=== PATIENT | female | born 2000 | race American Indian/Alaskan Native ===

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

== ENCOUNTER 2021-12-11 16:47 | Emergency (ER) | payer BC, MEDICAID ==
[2021-12-11] MEDS ORDERED: KETOROLAC 10 MG TAB PO ONE (19:10)
[2021-12-11] MEDS ORDERED: ACETAMINOPHEN W/CODEINE 300-30 MG TAB PO ONE (19:10)
--- NOTE | 2021-12-11 19:15 | Emergency Department Report ---
ED Abdominal Pain HPI - General Chief Complaint: Abdominal Pain Stated Complaint: ABDOMINAL PAIN/VOMITING Time Seen by Provider: 12/11/21 19:10 Source: patient Mode of arrival: Ambulatory Limitations: No Limitations - History of Present Illness Initial Comments: 21-year-old black female with a past medical history of PCOS presents to the emergency room for evaluation of abdominal cramping and abnormal vaginal bleeding. She states that she started her period on December 02 and has been bleeding since then. She states that 2 to 3 days ago the bleeding became heavier and she was passing clots also. She states that 2 months ago she was started on control pills, and she was seen by her GENERAL I FARMWORKER Dr. Hitchcock of [facility] who stated that she should continue her control pills and give it another month to see if the bleeding improves. She was also seen at urgent care 3 days ago for same problem and was advised to follow-up in the e mergency room. She states that prior to December 02, she had not had a period for several months. She states that when she has the cramping that she has pain/pressure in her lower abdomen vaginal area and rectal area. She denies fever, dysuria, changes in appetite, dizziness, and weakness. MD Complaint: abdominal pain -: Gradual, days(s) (13) Location: suprapubic Severity: moderate Severity scale (0 -10): 7 Quality: cramping Consistency: intermittent Associated Symptoms: denies: nausea, vomiting, constipation, dysuria, melena, anorexia - Related Data Previous Rx's Medication Instructions Recorded Last Taken Type Amoxicillin 500 mg PO BID #14 capsule 06/29/18 Unknown Rx Ibuprofen [Motrin 800 MG tab] 800 mg PO Q8HR PRN #20 tablet 06/29/18 Unknown Rx Naproxen [Naprosyn] 500 mg PO BID #14 tab 12/11/21 Unknown Rx Allergies Allergy/AdvReac Type Severity Reaction Status Date / Time No Known Allergies Allergy Unverified 06/29/18 00:22 ED Review of Systems ROS: Stated complaint: ABDOMINAL PAIN/VOMITING Other details as noted in HPI Comment: All other systems reviewed and negative Constitutional: denies: chills, fever, malaise, weakness Respiratory: denies: no symptoms reported, cough, shortness of breath, SOB with exertion, SOB at rest Cardiovascular: denies: chest pain, palpitations, syncope Endocrine: no symptoms reported Gastrointestinal: abdominal pain. denies: nausea, vomiting, hematemesis, melena, hematochezia Genitourinary: abnormal menses. denies: urgency, dysuria, frequency, hematuria, discharge, dyspareunia Musculoskeletal: denies: back pain Skin: denies: rash, lesions Neurological: denies: weakness, vertigo Psychiatric: denies: anxiety ED Past Medical Hx - Past Medical History Previous Medical History?: Yes Additional medical history: Morbid Obesity - Surgical History Past Surgical History?: Yes - Social History Smoking Status: Never Smoker Substance Use Type: None (denies illicit drug use) - Medications Home Medications: Home Medications Medication Instructions Recorded Confirmed Last Taken Type Amoxicillin 500 mg PO BID #14 capsule 06/29/18 Unknown Rx Ibuprofen [Motrin 800 MG tab] 800 mg PO Q8HR PRN #20 tablet 06/29/18 Unknown Rx Naproxen [Naprosyn] 500 mg PO BID #14 tab 12/11/21 Unknown Rx ED Physical Exam - General General appearance: alert, in no apparent distress - Head Head exam: Present: atraumatic, normocephalic - Eye Eye exam: Present: normal appearance. Absent: conjunctival injection - Neck Neck exam: Present: normal inspection, full ROM - Respiratory Respiratory exam: Present: normal lung sounds bilaterally. Absent: respiratory distress, wheezes, chest wall tenderness - Cardiovascular Cardiovascular Exam: Present: normal heart sounds - GI/Abdominal GI/Abdominal exam: Present: soft, normal bowel sounds. Absent: distended, tenderness, guarding, rebound - Extremities Exam Extremities exam: Present: normal inspection, full ROM - Back Exam Back exam: Present: normal inspection, full ROM. Absent: tenderness, CVA tenderness (R), CVA tenderness (L) - Neurological Exam Neurological exam: Present: alert, oriented X3, normal gait - Psychiatric Psychiatric exam: Present: normal affect, normal mood - Skin Skin exam: Present: warm, dry, intact ED Course Vital Signs 12/11/21 12/11/21 12/11/21 17:36 19:20 20:45 Temperature 98.3 F 98.0 F Pulse Rate 113 H 77 Respiratory 18 16 18 Rate Blood Pressure 139/92 Blood Pressure 127/78 [Right] O2 Sat by Pulse 100 99 Oximetry ED Medical Decision Making - Medical Decision Making 21-year-old black female with a past medical history of PCOS presents to the emergency room for evaluation of abdominal cramping and abnormal vaginal bleeding. She states that she started her period on December 02 and has been bleeding since then. She states that 2 to 3 days ago the bleeding became heavier and she was passing clots also. She states that 2 months ago she was started on control pills, and she was seen by her GENERAL I [employer] Dr. Hitchcock of [facility] who stated that she should continue her control pills and give it another month to see if the bleeding improves. She was also seen at urgent care 3 days ago for same problem and was advised to follow-up in the emergency room. She states that prior to December 02, she had not had a period for several months. She states that when she has the cramping that she has pain/pressure in her lower abdomen vaginal area and rectal area. She denies fever, dysuria, changes in appetite, dizziness, and weakness Patient without tenderness on exam. Continues to deny dizziness and weakness. Patient will be started on 7-day course of NSAIDs to attempt to improve vaginal bleeding. She was encouraged to follow-up with GENERAL I FARMWORKER as planned on in January. She was advised to continue medications as ordered by GENERAL I [employer]ARM[employer]. She was advised to follow-up with GENERAL I FARMWORKER or in ER if any worsening of symptoms. Patient verbalized understanding of and agreement with plan of care. Critical Care Time: No Critical care attestation.: If time is entered above; I have spent that time in minutes in the direct care of this critically ill patient, excluding procedure time. ED Disposition Clinical Impression: Vaginal bleeding, Abdominal cramping Clinical Impression: (Ruled Out): Abdominal pain Disposition: HOME / SELF CARE / HOMELESS Is pt being admited?: No Does the pt Need Aspirin: No Condition: Stable Instructions: Abnormal Uterine Bleeding, Abdominal Pain, Adult, [id number], Dysfunctional Uterine Bleeding, Abdominal Pain (ED) Additional Instructions: Take medications as prescribed. Follow up with sustainable agriculture specialist as planned. Prescriptions: Naproxen [Naprosyn] 500 mg PO BID #14 tab Referrals: EUNICE YUN MD [Staff Physician] - 3-5 Days Time of Disposition: 19:16
[2021-12-11 20:46] VITALS: BP 127/78
== END 2021-12-11 20:45 | disposition home or self-care (01) ==
LOC: ED 16:47
DX: N93.9 Abnormal uterine and vaginal bleeding, unspecified (principal); R10.9 Unspecified abdominal pain; Z79.899 Other long term (current) drug therapy; Z98.890 Other specified postprocedural states
CPT/HCPCS: 99282